=== PATIENT | male | born 1985 | race Caucasian/White ===

== ENCOUNTER 2023-07-02 08:40 | Outpatient (CLI) | payer SELFPAY | END 2023-07-02 23:59 | disposition EMS.NT | LOC: EMS 08:40 | DX: H57.12 Ocular pain, left eye (principal) ==

== ENCOUNTER 2023-11-09 22:48 | Outpatient (CLI) | payer OTHER | END 2023-11-09 23:59 | disposition short-term general hospital (02) | LOC: EMS 22:48 | DX: S06.9X1A Unspecified intracranial injury with loss of consciousness of 30 minutes or less, initial encounter (principal); S01.01XA Laceration without foreign body of scalp, initial encounter; V03.10XA Pedestrian on foot injured in collision with car, pick-up truck or van in traffic accident, initial encounter; Y92.414 Local residential or business street as the place of occurrence of the external cause | CPT/HCPCS: A0425; A0429 ==